=== PATIENT | male | born 2005 | race Two or more races ===

== ENCOUNTER 2023-09-20 08:56 | Outpatient (CLI) | payer SELFPAY ==
--- NOTE | 2023-09-20 09:08 | US_ITS ---
FINAL REPORT CLINICAL HISTORY: INGUINAL PAIN X COUPLE MONTHS COMPARISON: None FINDINGS: Limited sonographic images were obtained of the left inguinal region at the area of interest. There is a questionable small medial left inguinal hernia. IMPRESSION: Questionable small medial left inguinal hernia. Correlate clinically. CT could better evaluate for a small hernia. Reviewed, Interpreted and Dictated by Ronnie Monaco MD Transcribed by Merlene Randhawa Authenticated and [facility]
== END 2023-09-20 23:59 | disposition home or self-care (01) ==
LOC: RAD 09:03
PROVIDERS: PCP Nurse Practitioner Family; Visit Provider Nurse Practitioner Family
DX: K40.40 Unilateral inguinal hernia, with gangrene, not specified as recurrent (principal)
CPT/HCPCS: 76882

== ENCOUNTER 2023-12-23 07:55 | Outpatient (CLI) | payer SELFPAY ==
--- NOTE | 2023-12-23 07:56 | CT_ITS ---
FINAL REPORT TECHNIQUE: After the administration of oral and intravenous contrast, axial images were obtained through the abdomen and pelvis by computed tomography. The study was performed with techniques to keep radiation dose as low as reasonably achievable, (ALARA). Individual dose reduction techniques using automated exposure control or adjustment of mA and/or kV according to the patient's size were employed. CLINICAL HISTORY: LLQ Pain COMPARISON: None FINDINGS: Abdomen: The lung bases are clear. The liver parenchyma is homogeneous. The gallbladder is present. The spleen, pancreas, adrenals and kidneys appear unremarkable. The aorta is normal in caliber. There is no free fluid or adenopathy. Pelvis: The appendix is not identified. There is a moderate amount of stool throughout the colon. The urinary bladder is incompletely distended. There is no free fluid or adenopathy. IMPRESSION: No localized inflammatory reaction or fluid collection identified. Reviewed, Interpreted and Dictated by Ronnie Monaco MD Transcribed by Merlene Randhawa Authenticated and [facility]
[2023-12-23] MEDS: BARIUM SULFATE(READI-CAT2);450ML BOTTLE 450 ML PO (08:21)
[2023-12-23] MEDS: SODIUM CHLORIDE 0.9% 10ML SYR (RAD ONLY) 10 ML IV (08:21)
[2023-12-23] MEDS: IOPAMIDOL-370 (76%);100ML BOTTLE 75 ML IV (08:21)
== END 2023-12-23 23:59 | disposition home or self-care (01) ==
LOC: RAD 07:56
PROVIDERS: PCP Nurse Practitioner Family; Visit Provider Surgery
DX: R10.32 Left lower quadrant pain (principal)
CPT/HCPCS: 74177; Q9967

== ENCOUNTER 2025-02-05 13:03 | Outpatient (CLI) | payer SELFPAY ==
--- OUTSIDE RECORDS SUMMARY | 2025-01-31 10:00 | XMS_ITS | Continuity of Care Document ---
Author Organization [facility] Address [address] [place] [address] Phone Care Team Providers Care Scrubber Operator Name Role Phone Nile MSN, WHEEL AND CASTER REPAIRER, Tayla Unavailable Unavai lable Allergies, Adverse Reactions, Alerts Substance Reaction Status Criticality No Known Allergies Active No Inform ation Medications Medication Instructions Dosage Effective Dates (start - stop) Status Comments triamcinolone acetonide 0.1 % topical cream apply by topical route 2 times every day a thin layer to the affected area(s) 0.00 - Active clobetasol 0.05 % topical ointment apply by topical route 2 times every day a thin layer to the affected area(s) 0.00 - Active fluconazole 200 mg tablet take 1 tablet by oral route every day 200 MG - Active Kusum Allergy 180 mg tablet take 1 tablet by oral route every day 180 MG - Active fluticasone propionate 50 mcg/actuation nasal spray,suspension spray 1 - 2 spray by intranasal route every day in each nostril as needed 50-100 MCG - Active Procedures Procedure Date TELEHEALTH OFFICE/OUTPATIENT VISIT EST O ct Advance Directives Directive Yes / No Effective Date File Name No Information Encounters Encounter Description Practice Location Reason(s) For Visit Diagnoses Date Provider [facility], [address] [place], [address], tel:[phone] [facility] follow up labs (chief complaint)P ain in Testicles (chief complaint)t elehealth (chief complaint) Body mass index [BMI] 30.0-30.9, adultLeft testicular painVaricoceleNicotine dependence, unspecified, uncomplicatedTinea manuumAcute renal injury Jan-0 2 5 Dowd Tayla. [address], [place], [id number] , [place]. tel: [phone] [facility], [address] [place] [address], [facility], tel:[phone] [facility] [place] testicular pain (chief complaint)d ermatitis (chief complaint)s inus congestion (chief complaint) Contact dermatitisNicotine dependence, unspecified, uncomplicatedLeft testicular painObesity, unspecifiedBody mass index [BMI] 30.0-30.9, adult Sep-1 5 Dowd Tayla. [address], [place], [id number] , [place]. tel: [phone] [facility], [address] [place] [address], [facility], tel:[phone] [facility] [place] knee pain (chief complaint)D epression screening (chief complaint) Pain in right kneeEncounter for screening for depressionBody mass index [BMI] 28.0-28.9, adult Mar-0 3- 5 Dowd Tayla. [address], [place], [id number] , [place]. tel: [phone] [facility], [address] [place] [address], [facility], [place] tel:[phone] [facility] [place] Inguinal hernia 4 Dowd Tayla. [address], [place], [id number] , [place]. tel: [phone] [facility], [address] [place] [address], [facility], [place] tel:[phone] [facility] [place] labs (chief complaint) Abnormal results of thyroid function studiesNicotine dependence, unspecified, uncomplicatedUnilateral inguinal hernia, with gangrene, not specified as recurrentLow incomeInsufficient social insurance and welfare support 4 Nile Bourne. [address], [place], [id number] , . tel: [phone] [address], [facility], tel:[phone] [facility] [place] lab collection (chief complaint) Abnormal results of thyroid function studies 4 Nile Bourne. [address], [place], [id number] , [place]. tel: [phone] [address], [facility], tel:[phone] [facility] [place] f/u on labs (chief complaint) Body mass index [BMI] 26.0-26.9, adultAbnormal results of thyroid function studiesPain in right kneePain in left kneeTinea manuum 4 Nile Bourne. [address], [place], [id number] , [place]. tel: [phone] [address], [facility], tel:[phone] [facility] [place] new to establish (chief complaint) Encounter for screening for depressionEncounter for screening examination for other mental health and behavioral disordersSinusitisNicoti ne dependence, unspecified, uncomplicatedEncounter for immunizationEncntr screen for dis of the bld/bld-form org/immun mechnsmBody mass index [BMI] 27.0-27.9, adult 4 Nile Bourne. [address], [place], [id number] , [place]. tel:[phone] Family History Family Member Type Diagnosis Age At Onset Maternal grandmother Problem Asthma Maternal grandmother Problem Cancer, uterine Father Problem liver failure Sister Problem Alive and well Mother Problem Anxiety, Vitamin B and D Deficiency Sister Problem Alive and well Maternal grandfather Problem Hypercholesterolemia Half brother (P) Problem Alive and well Half sister (P) Problem Alive and well Paternal grandfather Problem Alive and well Maternal grandmother Problem Alive and well Maternal grandfather Problem Alive and well Maternal grandmother Problem Hypertension Mother Problem Alive and well Maternal grandmother Problem FIBROMYALGI A, HX OF UTERINE CANCER, DEGENERATIVE DISC DISEASE, ANXIETY Half sister (P) Problem Alive and well Paternal grandmother Problem (finding) Half sister (P) Problem Alive and well Half sister (P) Problem Alive and well Half sister (P) Problem Alive and well Maternal grandmother Problem Depression Mother Problem Hypercholesterolemia Maternal grandmother Problem Hypercholesterolemia Maternal grandfather Problem Hypertension Half sister (P) Problem Alive and well Paternal grandmother Problem Cancer, breast (Caus e Of ) Immunizations Vaccine Date Status Comments Influenza Flulaval administered Source: N ew Immunization Record COVID-19 mRNA (PFR) administered Source: Other Registry COVID-19 mRNA (PFR) administered Source: Other Registry Payers Payer name Insurance type Covered green party ID Authordariaa tilloyd(s) Hc- Covered Under Arpan CI [id number] Hc- Covered Under [employer] CI [id number] Social History Type Description Quantity Date Captured Comments Alcohol Use Details No Caffeine Use Details coffee and prework out caffeine 400 mg daily 2 cups per day Tobacco Use Status Current non-smoker Smoking Status Never smoker Sex Male Sexual Orientation Straight or heterosexual May Gender Identity Male Vital Signs Date / Time: Height Weight BMI Pulse Rate Blood Pressure Temperature Respiratory Rate Body Surface Area Head Circumference Head Circ. Percentile Wt./Milo. Percentile BMI percentile Pulse Ox Inhaled Ox 2:14 PM 73.00 in 106.413 kg (234.60 lbs) 30.9 5 kg/m eter (2) 68 /min 129/70 mm[Hg] 98.20 F 18 /min 98 % Chief Complaint And Reason For Visit From encounter dated '01/31/2025 14:00'. follow up labs (chief complaint). Description: Mega is here today for f/u on recent labs.Overalllabs ok1.34 creatinine- encouraged to drink more water and to stop any energy drinks or supplementsprior to work-outs. He voiced understanding.I will follow along with the US of the Kidney to r/o any further renal abnormalities, ordered by urology.LDL 120, Trigs 47He did go back to general surgeryfor re-evaluation of his left testicular pain. From there, surgeon was still not impressed with imaging of hernia, so he was referred to Urology. They are working up the possibility of a variocele.Hewill need further US of kidney, left testicle and left inguinal area. He is to f/u with them after testing complete.He states rash on hands is getting better with ointmentsAllergies are better with Kusum Pain in Testicles (chief complaint). Description: Dr. Paul on the , has ultrasound next Tuesday at [facility], vericose veins running down left testicle per Dr. Paul. He has a follow up appointment with Dr. Paul on February 18, 2025. telehealth (chief complaint). Description: Patient and/or Guardian has verified being in the [facility] and has given verbal consent to be treated via telehealth/telephone consultation. Today's visit is being completed via; Transmension videoPatient and/or Guardian provided full consent to use this technology. Patient and/or guardian was advised of the limitations of a video/phone visit via telehealth. Pt was seen in office, provider was remotely located: home. Plan Of Treatment Date Type Action Status Goal Lipid panel. Due on 026 due Goal CMP. Due on due Goal Diabetes screening. Due on due Goal Hepatitis C Screening due Goal CBC. Due on due Goal Depression screening. Due on due Goal Tobacco Use Screening. Due o n due Goal Generalized Anxi ety Disorder - 7 (BARRY-7). Due on due Goal Unhealthy drug use screening due Goal Influenza vaccine. Due on due Goal Drug Abuse Scree brown Test (DAST-10). Due on due Goal Vitamin D. Due on due Goal Follow up Plan f or abnormal BMI (Less than 18.5, greater than 25). Due on due Goal HIV screen due Goal Obtain Height, Weight, and B UT. Due on due Goal Vitamin B12. Due on due Goal Tobacco screening. Due on due Goal Hemoglobin (Pree yang/HR 9 months). Due on due Goal Hematocrit/Hemoglobin. Due o n due Goal Lifestyle education regardin g diet completed Goal Lipid panel. Due on due Goal Generalized Anxi ety Disorder - 7 (BARRY-7). Due on due Goal Obtain Height, Weight, and B UT. Due on due Goal CBC. Due on due Goal Tobacco screening. Due on due Goal CMP. Due on due Goal Unhealthy drug use screening due Goal Tobacco Use Screening. Due o n due Goal HIV screen due Goal Influenza vaccine. Due on due Goal Hepatitis C Screening due Goal Follow up Plan f or abnormal BMI (Less than 18.5, greater than 25). Due on due Goal Vitamin D. Due on due Goal Diabetes screening. Due on due Goal Depression screening. Due on due Goal Vitamin B12. Due on due Goal Drug Abuse Scree brown Test (DAST-10). Due on due Goal Hematocrit/Hemoglobin. Due o n due Goal Hemoglobin (Pree yang/HR 9 months). Due on due Goal Lifestyle education regardin g diet completed Goal Hepatitis C Screening due Goal Obtain Height, Weight, and B UT. Due on due Goal HIV screen due Goal Vitamin D. Due on due Goal Follow up Plan f or abnormal BMI (Less than 18.5, greater than 25). Due on due Goal Diabetes screening. Due on due Goal Influenza vaccine. Due on due Goal Depression screening. Due on due Goal Drug Abuse Scree brown Test (DAST-10). Due on due Goal Vitamin B12. Due on due Goal Generalized Anxi ety Disorder - 7 (BARRY-7). Due on due Goal Lipid panel. Due on 044 due Goal CBC. Due on due Goal CMP. Due on due Goal Unhealthy drug use screening due Goal Tobacco Use Screening. Due o n due Goal Lifestyle education regardin g diet completed Goal Unhealthy drug use screening due Goal HIV screen due Goal CBC. Due on due Goal Drug Abuse Scree brown Test (DAST-10). Due on due Goal Influenza vaccine. Due on due Goal Follow up Plan f or abnormal BMI (Less than 18.5, greater than 25). Due on due Goal Tobacco Use Screening. Due o n due Goal Lipid panel. Due on 044 due Goal Depression screening. Due on due Goal Tobacco Use Cess ation Counseling. Due on due Goal Hepatitis C Screening due Goal Vitamin B12. Due on due Goal Obtain Height, Weight, and B UT. Due on due Goal Generalized Anxi ety Disorder - 7 (BARRY-7). Due on due Goal CMP. Due on due Goal Vitamin D. Due on due Goal Diabetes screening. Due on due Goal Follow up Plan f or abnormal BMI (Less than 18.5, greater than 25). Due on due Goal Unhealthy drug use screening due Goal Hepatitis C Screening due Goal CBC. Due on due Goal Vitamin B12. Due on due Goal Drug Abuse Scree brown Test (DAST-10). Due on due Goal HIV screen due Goal Depression screening. Due on due Goal Vitamin D. Due on due Goal Generalized Anxi ety Disorder - 7 (BARRY-7). Due on due Goal CMP. Due on due Goal Influenza vaccine. Due on due Goal Obtain Height, Weight, and B UT. Due on due Goal Tobacco Use Screening. Due o n due Goal Diabetes screening. Due on due Goal Lipid panel. Due on due Goal Vitamin D. Due on due Goal Diabetes screening. Due on due Goal CBC. Due on due Goal Obtain Height, Weight, and B UT. Due on due Goal CMP. Due on due Goal Hepatitis C Screening due Goal Depression screening. Due on due Goal Influenza vaccine. Due on due Goal Vitamin B12. Due on due Goal Tobacco Use Cess ation Counseling. Due on due Goal Generalized Anxi ety Disorder - 7 (BARRY-7). Due on due Goal Lipid panel. Due on due Goal Follow up Plan f or abnormal BMI (Less than 18.5, greater than 25). Due on due Goal Drug Abuse Scree brown Test (DAST-10). Due on due Goal HIV screen due Goal Tobacco Use Screening. Due o n due Goal Unhealthy drug use screening due Goal Obtain Height, Weight, and B UT. Due on due Goal Vitamin B12. Due on due Goal Depression screening. Due on due Goal Generalized Anxi ety Disorder - 7 (BARRY-7). Due on due Goal CBC. Due on due Goal Lipid panel. Due on 044 due Goal Influenza vaccine. Due on due Goal Diabetes screening. Due on due Goal Tobacco Use Cess ation Counseling. Due on due Goal Hepatitis C Screening due Goal Follow up Plan f or abnormal BMI (Less than 18.5, greater than 25). Due on due Goal Unhealthy drug use screening due Goal Vitamin D. Due on due Goal Tobacco Use Screening. Due o n due Goal CMP. Due on due Goal HIV screen due Goal Drug Abuse Scree brown Test (DAST-10). Due on due Goal Lifestyle education regardin g diet completed Goal Obtain Height, Weight, and B UT. Due on due Goal Vitamin B12. Due on due Goal Depression screening. Due on due Goal Generalized Anxi ety Disorder - 7 (BARRY-7). Due on due Goal CBC. Due on due Goal Lipid panel. Due on 044 due Goal Influenza vaccine. Due on due Goal Diabetes screening. Due on due Goal Tobacco Use Cess ation Counseling. Due on due Goal Hepatitis C Screening due Goal Follow up Plan f or abnormal BMI (Less than 18.5, greater than 25). Due on due Goal Unhealthy drug use screening due Goal Vitamin D. Due on due Goal Tobacco Use Screening. Due o n due Goal CMP. Due on due Goal HIV screen due Goal Drug Abuse Scree brown Test (DAST-10). Due on due Goal Lifestyle education regardin g diet completed Goal Tobacco cessation counseling completed Referral Referred To: [facility] Ordered: Referrals: Surgery. [facility]. Location: [place]. Evaluate and treat Appointment date/timeframe: 10/19/2023 ordered Referral Referred To: [facility] Ordered: Referrals: Surgery. [facility]. Location: [place]. Evaluate and treat Appointment date/timeframe: 3 Weeks ordered Referral Ordered: US XTR NON-VASC LMTD Left groin/abdomen Appointment date/timeframe: 09/20/2023 ordered Appointment Mega Gonzales F/U BOOKED History Of Present Illness Encounter Date Complaint History Of Prese nt Illness follow up labs Mega is here today for f/u on recent labs.Overall labs ok1.34 creatinine- encouraged to drink more water and to stop any energy drinks or supplements prior to work-outs. He voiced understanding.I will follow along with the US of the Kidney to r/o any further renal abnormalities, ordered by urology.LDL 120, Trigs 47He did go back to general surgery for re-evaluation of his left testicular pain. From there, surgeon was still not impressed with imaging of hernia, so he was referred to Urology. They are working up the possibility of a variocele.He will need further US of kidney, left testicle and left inguinal area. He is to f/u with them after testing complete.He states rash on hands is getting better with ointmentsAllergies are better with Kusum telehealth Patient and/or G jagdish has verified being in the [facility] and has given verbal consent to be treated via telehealth/telephone consultation. Today's visit is being completed via; Transmension videoPatient and/or Guardian provided full consent to use this technology. Patient and/or guardian was advised of the limitations of a video/phone visit via telehealth. Pt was seen in office, provider was remotely located: home. Pain in Testicles Dr. Paul on the , has ultrasound next Tuesday at [facility], vericose veins running down left testicle per Dr. Paul. He has a follow up appointment with Dr. Paul on February 18, 2025. dermatitis Pt still reports having peeling skin on jez hands that does not go away.He wears gloves a lot, works in construction, sweats, and handles dry wall/chemicals.worse in the winter sinus congestion Mega reports having sinus congestion over the past few years. He is not taking allergy medication.He does not feel sick, and he does not have c/o sore throat, fever.Phlegm in throat.Ear fullness.Starting him on kusum and flonaseRTC if not improved- 2 weeks testicular pain Onset: 1 year ag o. It occurs Intermittently. Location is left scrotum and left testicle. There is radiation to groin to testis. The problem is worse. Context: lifting. Symptom is aggravated by activity. Denies relieving factors. Associated symptoms include swelling. Pertinent negatives include headache. Additional information: 09/20/23 had US of left testicle and was noted to have small inguinal hernia. A CT was recommended for further evaluation.. Depression screening Depression screening completed 07/02/24. Pt scored 0, provider aware. -AW,CM knee pain Onset: 2 weeks a go. Severity level is 6. It occurs constantly and is worsening. Location: right knee. There is no radiation. The pain is aching. Context: there is an injury. Trauma occurred [facility] on 06/23/2024. The pain is aggravated by bending and movement. There are no relieving factors. Associated symptoms include decreased mobility, joint tenderness, limping and swelling. Pertinent negatives include bruising and crepitus. labs Mega is here today to have labs collected, repeat TSH and possible referral to urology.He is a 17 yo male.In May he had labs completed- and his TSH was slightly low. This was repeated July 06 and was back to normal.His mother, grandmother, and aunts have thyroid problems. Today he reports he is feeling states that he feels like there is pain in the left testicle. Sometimes hurts and some does not. Lifting heavy stuff- is prasad. States that when he has an erection it feel like it is pulling on the left side of the shaft of the penis.Denies difficulty w/ urination, no discharge noted. possible inguinal hernia w/ scrotal involvement. US ordered for confirmation.Referral made to general sx. lab collection Mega is here today for repeat TSH collection f/u on labs Mega is a 17 yo male here today to f/u on recent labs:CBC, CMP, wnlBUN slight elevation at 21A1c 5.0Neg Hep/HIVTotal Cholesterol 163, HDL 64, LDL 86, and trigs 52TSH slightly low 0.47, and T4 wnl will repeat TSH in 6 weeks to re-evaluateTestosterone wnlB12 593 and vit D 29Overall labs are goodFlu vaccine currentrash on left hand and thumb x 6 yearslifts weights, carpenterdry and scaleyitches at timesReports jez knee pain that comes and goespops and cracks at times- sometimes a sharp pain in rt lateral kneelifts weights and goes to the gym frequentlyalso up and down w/ his workNo insurance- declines xrays or MRI at this timeRT hurts more than left at timesPain is tollerable and not present todayadvised to use ice/heat therapy, avoid over use and could use otc nsaid for pain releif or topical rub (voltaren/blue emu)He voiced understanding. new to establish Mega is a 17 yo [place] -[place] male here today to establish care.I care for his mother, aunt, and maternal grandparents as well. (elzbieta hx of htn, hld, pre-DM, anxiety)Mega states he has had cough/congestion and some vomiting for the past week. He has not taken anything for this, however reports he was sick just 1 month ago and was given amoxicillin- got better. Aside from this he still would like to have his flu vaccine today.He denies other problems, but request to have his insulin and testosterone checked in addition to routine labs.He is fasting today.He vapes 1 gram daily- cessation was discussed and he feels he can stop at anytime- and I encouraged him to stop today. Instructions Date Instruction Additional Infor mirela Continue w/ planned US on the 7thF/u with urologyIf you do not have surgery, and do not have labs completed elsewhere, RTC here in 1 month.RTC sooner for new problems or concerns. Related to Varicocele Continue to keep can ds drycontinue use of ointments Related to Tinea manuum It is recommended to stop smoking/vaping to increase overall health and decrease risk of cardiovascular disease. If you wish to stop smoking/vaping, there is a free online [place] from smoking course offered through our local health department. You may call [phone] for more information. Related to Nicotine dependence, unspecified, uncomplicated Stop using creatine after work-outs, stop using Monster drinks.Increase water consumption.May continue multivitamin.RTC 1 month for repeat labs- if not performed for your upcoming possible surgery. Related to Acute renal injury Giving encouragement to exercise Related to Body mass index [BMI] 30.0-30.9, adult Lifestyle education regarding di et Related to Body mass index [BMI] 30.0-30.9, adult Please follow up esther Drake. for further evaluation of inguinal hernia. If you have increased pain go to the ER. Related to Left testicular pain Apply Triamsinolone to affected r ea two times daily, to affected area. Do not use on your face. Use cool compresses to area, wear loose fitting cotton clothing. My take aveeno bath. Do not use any soap with dyes or perfumes in it. It may be beneficial to use a moisturizing ointment such as cerevae or jones two times daily to aid w/ inflammation. Change gloves frequently Related to Contact dermatitis It is recommended to stop smoking/vaping to increase overall health and decrease risk of cardiovascular disease. If you wish to stop smoking/vaping, there is a free online [place] from smoking course offered through our local health department. You may call [phone] for more information. Related to Nicotine dependence, unspecified, uncomplicated Giving encouragement to exercise Related to Obesity, unspecified Lifestyle education regarding di et Related to Obesity, unspecified rest, ice, compressi on as instructed to reduce post joint injection(s) pain and swellingMay use voltaren gel or icy hot to affected areaTake Prednisone as instructed. RTC 1 week if not improving. Related to Pain in right knee Giving encouragement to exercise Related to Body mass index [BMI] 28.0-28.9, adult Lifestyle education regarding di et Related to Body mass index [BMI] 28.0-28.9, adult It is recommended to stop vaping to increase overall health and decrease risk of cardiovascular disease. If you wish to stop vaping, there is a free online [place] from smoking course offered through our local health department. You may call [phone] for more information. Related to Nicotine dependence, unspecified, uncomplicated Physical activity as tolerated. Try to engage in some form of moderate physical activity for 30 minutes most days of the week. May modify activity as needed to reduce discomfort. Try to achieve/maintain a healthy body weight to reduce strain on musculoskeletal system. Verbalizes an understanding. Related to Body mass index [BMI] 26.0-26.9, adult Giving encouragement to exercise Related to Body mass index [BMI] 26.0-26.9, adult Lifestyle education regarding di et Related to Body mass index [BMI] 26.0-26.9, adult Fasting labs today - routine + testosterone and insulin levels Related to Encntr screen for dis of the bld/bld-form org/immun mechnsm It is recommended to stop smoking/vaping to increase overall health and decrease risk of cardiovascular disease. If you wish to stop smoking/vaping, there is a free online [place] from smoking course offered through our local health department. You may call [phone] for more information. Related to Nicotine dependence, unspecified, uncomplicated Flu vaccine given to day You may have some mild discomfort, chills, or a sore arm in the next 24 hrs. If needed you may take tylenol per packing instructions Related to Encounter for immunization Take all antibiotics until complete. May take with food to ease stomach irritation. If you experience frequent yeast infections, you may consider taking an OTC probiotic like culturell or align while taking antibiotics, or eating yogurt (daily) with active cultures. Related to Sinusitis Giving encouragement to exercise Related to Body mass index [BMI] 27.0-27.9, adult Lifestyle education regarding di et Related to Body mass index [BMI] 27.0-27.9, adult Assessments Type Assessment Date assessment Body mass index [BMI] 30.0-30.9, adult assessment Left testicular pain assessment Varicocele assessment Nicotine dependence, unspecified , uncomplicated assessment Tinea manuum assessment Acute renal injury Mental Status Date Cognitive Assessment Orientation - [place] ed to time, place, person, situation.
--- NOTE | 2025-02-05 13:00 | US_ITS ---
FINAL REPORT TECHNIQUE: Sonographic images of the testicles and scrotum were obtained in the longitudinal and transverse planes. CLINICAL HISTORY: lt testicular pain and groin pain FINDINGS: The right testicle measures 3.9 x 4.7 x 2.3 centimeters. There is no intratesticular mass. The epididymis is within normal limits. No extratesticular mass is identified. There is a right varicocele. The left testicle measures 3.3 x 3.7 x 2.4 centimeters. There is no intratesticular mass. The epididymis is within normal limits. No extratesticular mass is identified. There is a left varicocele. Small left hydrocele is also identified. Color imaging reveals no evidence of testicular torsion. IMPRESSION: No evidence of intratesticular mass or testicular torsion. Bilateral varicoceles. Reviewed, Interpreted and Dictated by Christie Grey MD Transcribed by Luz Ramírez Authenticated and [facility]
--- OUTSIDE RECORDS SUMMARY | 2025-02-05 13:09 | XMS_ITS | Clinical Summary ---
Author Organization [facility] Address [address] [place] [address] Care Team Providers Care Pesticide Chemist Name Role Phone Marciano Beaver MD Primary Care Provider [phone] Allergies No known active allergies Medications cetirizine (zyrTEC) 10 MG tabletIndication s:Seasonal allergic rhinitis due to pollen Take 1 tablet by mouth Daily. 30 tablet 3 3 Active fluticasone (FLONASE) 50 MCG/ACT nasal sprayIndications :Seasonal allergic rhinitis due to pollen 2 sprays into the nostril(s) as directed by provider Daily. 15.8 mL 3 3 Active albuterol sulfate HFA 108 (90 Base) MCG/ACT inhalerIndicatio ns:Mild intermittent intrinsic asthma without status asthmaticus without complication Inhale 2 puffs Every 4 (Four) Hours As Needed for Wheezing or Shortness of Air. 18 g 2 3 Active triamcinolone (KENALOG) 0.1 % ointmentIndicati ons:Other atopic dermatitis Apply 1 application topically to the appropriate area as directed 2 (Two) Times a Day. 30 g 3 Active Active Problems Problem Noted Date Diagnosed Date Seasonal allergic rhinitis due to pollen 023 Assessment & Plan (09/03/2022 2:55 PM EDT): Seasonal pattern more spring and fall, generally does quite well but responds to as needed medications. Prescription for Zyrtec and Flonase to use for the next couple weeks, then as needed. Additional benefit of saline spray, nasal flushing. 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 Overall doing well but he is out of his rescue inhaler and we will refill today. Cautioned signs and symptoms of worsening which be signs of shortness of breath, chest tightness or exertional cough. Advise any worsening. Routine general medical exam ination at a health care facility 09/03/2022 Assessment & Plan (09/03/2022 2:53 PM EDT): no cardiac problems historically known. history of mild intermittent asthma, no flare since about 2014. seasonal allergic rhinitis, atopic dermatitis. Previous vaccinations up-to-date including 9-year-old vaccinations and 14-year-old meningitis booster through combined locations of [place] and critical access hospital in [place]. Non-bullous impetigo 04/27/2022 Assessment & Plan (04/27/2022 2:30 PM EST): Pattern of the blotchy yellow crusty rash on the left neck, the left lateral chin and underneath the anterior chin, likely pattern secondary to spread of infection from impetigo about 4 to 5 days ago. It is doing a little bit better but persist to the lesser degree. Initiate mupirocin ointment and Keflex as per prescription. Otherwise keep the area clean and dry. Advise if not improving. Other atopic dermatitis 04/27/2022 Assessment & Plan (09/03/2022 2:54 PM EDT): Intermittent pattern more winter months, involving the hands, for which she is doing better now that the weather is warmer. Use of unscented lotion such as Eucerin, Aveeno or Aquaphor. Also triamcinolone 0.1% cream 2-3 times daily as needed for periodic flares, avoid use in the face. Advise any worsening. Assessment & Plan (04/27/2022 2:31 PM EST): Modest intermittent pattern on the left thumb, with possibly some secondary pattern of fungal etiology as per tinea corporis discussion. From an eczematous perspective, keep the area clean and dry, use frequent unscented lotion such as Eucerin, Aveeno and Aquaphor. Have also prescribed triamcinolone 0.1% cream to be used 2-3 times daily as needed for periodic flares. Advise any worsening. Tinea corporis 04/27/2022 Assessment & Plan (04/27/2022 2:31 PM EST): Left thumb region with dry scaly rash intermittently flaring over the last couple years. I do feel that there is definitely a component of eczema but there may be a secondary milder fungal etiology. Initiate terbinafine as per prescription for 2 weeks. Keep the area clean and dry. Advise if not improving. Childhood overweight, BMI 85-94.9 percentile Assessment & Plan (09/03/2022 2:56 PM EDT): Patient is not truly overweight, he is appropriate body fat percentage by visualization and has a muscular build. Nonetheless I have reinforced healthy diet, exercise, as he would be at high risk with his muscular build of transitioning to obesity pattern in the future. Assessment & Plan (04/27/2022 2:34 PM EST): Not truly overweight, he has a good body fat for his weight frame, he has muscular and that is the reason for his slightly elevated BMI. Continue healthy diet, continue regular exercise with combination of aerobic and anaerobic exercise, no specific need for weight loss. Immunizations Immunization Administration Dates Next Due COVID-19 ([employer]) Purple Cap Monovalent 09/19/19 21,08/28/2020 Family History Medical History Relation Name Comments Thyroid disease Mother Relation Name Status Comments Father Alive Mother Alive Social History Tobacco Use Types Packs/Day Years Used Date Smoking Tobacco: Never Smokeless Tobacco: Never Alcohol Use Standard Drinks/Week Comments Never 0 (1 standard drink = 0.6 oz pur e alcohol) PHQ-2 Answer Date Recorded Retired PHQ-9: Brief Depression Severity Measure Score 0 09/03/2022 Abuse Screen Answer Date Recorded Unsafe at Home or Work/School Not on file Feels Threatened by Someone? Not on file Does Anyone Keep You from Co ntacting Others or Doint Things Outside the Home? Not on file 02/11/2023 Physical Sign of Abuse Present Not on file 1 Housing Stability Answer Date Recorded Current Living Arrangements Not on file 01/30 Potentially Unsafe Housing Conditions Not on kendra e 02/11/2023 Family and Community Support Answer Alphonso e Recorded Help with Day-to-Day Activities Not on file 02/11/2023 Lonely or Isolated Not on file 02/11/2023 Employment Answer Date Recorded Do you want help finding or keeping work or a cristina b? Not on file 02/11/2023 Disabilities Answer Date Recorded Concentrating, Remembering, or Making Decisions Difficulty Not on file 02/11/2023 Doing Errands Independently Difficulty Not on fi le 02/11/2023 Education Answer Date Recorded Help with school or training? Not on file Preferred Language Not on file 02/11/2023 PHQ-2 Answer Date Recorded Retired PHQ-9: Brief Depression Severity Measure Score 0 09/03/2022 Sex and Gender Information Value Date Recorded Sex Assigned at Not on file Legal Sex Male 5:27 PM EDT Gender Identity Not on file Sexual Orientation Not on file Last Filed Vital Signs Vital Sign Reading Time Taken Comments Blood Pressure 122/82 09/03/2022 1:55 PM EDT Pulse 63 09/03/2022 1:55 PM EDT Temperature 36.8 C (98.2 F) 09/03/2022 1:55 PM EDT Respiratory Rate 16 09/03/2022 1:55 PM EDT Oxygen Saturation 98% 09/03/2022 1:55 PM EDT Inhaled Oxygen Concentration - - Weight 92.6 kg (204 lb 3.2 oz) 09/03/2022 1:55 P M EDT Height 182.9 cm (6') 09/03/2022 1:55 PM EDT Body Mass Index 27.69 09/03/2022 1:55 PM EDT Plan of Treatment Health Maintenance Due Date Last Done Comments HPV VACCINES (1 - Male 3-dos e series) 11/04/2018 MENINGOCOCCAL B VACCINE (1 o f 2 - Standard) 2019 Pneumococcal Vaccine 0-49 (1 of 2 - PCV) 11/04/2022 TDAP/TD VACCINES (1 - Tdap) 11/04/2022 ANNUAL PHYSICAL 09/04/2023 09/03/2022 INFLUENZA VACCINE 11/30/2024 HEPATITIS C SCREENING Completed 09/03/2022 MENINGOCOCCAL VACCINE Aged Out No alexsander nury eligible based on patient's age to complete this topic Procedures Procedure Name Priority Date/Time Associated Diagnosis Comments HEPATITIS C ANTIBODY Routine 09/03/2022 2:23 PM EDT Routine general medical examination at a health care facility from Last 3 Months or Most Recently Relevant to Health Maintenance Results * Hepatitis C Antibody (09/03/2022 2:23 PM EDT) Hep C Virus Ab Non Reactive Non Reactive [facility] Comment: HCV antibody alone does not differentiate between previously resolved infection and active infection. Equivocal and Reactive HCV antibody results should be followed up with an HCV RNA test to support the diagnosis of active HCV infection. Blood Structure of right upper limb / Unknown 09/03/2022 2:23 PM EDT 09/03/2022 Comment:Blood Release to [facility] kristyn Winn [facility] (AMBULATORY) - 09/04/2022 9:06 AM EDT Performed at: - [facility] [address] [place] [address] [id number] Fur Stretcher: Dino Chambers PhD, Phone: [phone] Marciano Beaver MD LAB BLOOD ORDERABLES Final Resul t [facility] ([facility] [address] [place] [address], [facility] [address] [place] [address], [place] [phone] from Last 3 Months or Most Recently Relevant to Health Maintenance Insurance Care Teams Pesticide Chemist Relationship Specialty Start Date End Date Marciano Beaver MD [address] [place] [address] [place] [id number] PCP - General Internal Medicine 03/31/22
--- NOTE | 2025-02-05 13:45 | US_ITS ---
FINAL REPORT TECHNIQUE: Sonographic images of the kidneys and retroperitoneum were obtained in the longitudinal and transverse planes. CLINICAL HISTORY: lt testicular pain and inguinal pain FINDINGS: The right kidney measures 11.1 cm in [id number] length. No hydronephrosis, mass, or stone. Cortical echogenicity and thickness are normal. The left kidney measures 9.5 cm in [id number] length. No hydronephrosis, mass, or stone. Cortical echogenicity and thickness are normal. IMPRESSION: Morphologically normal kidneys bilaterally. Reviewed, Interpreted and Dictated by Christie Grey MD Transcribed by Luz Ramírez Authenticated and [facility]
--- NOTE | 2025-02-05 14:15 | US_ITS ---
FINAL REPORT CLINICAL HISTORY: Inguinal pain FINDINGS: Limited sonographic images of the left inguinal region was obtained. There is no evidence of mass or fluid collection. There are mildly enlarged but benign appearing lymph nodes, largest measures 4.4 cm. IMPRESSION: Left inguinal no adenopathy, favor reactive. Consider CT. Reviewed, Interpreted and Dictated by Christie Grey MD Transcribed by Luz Ramírez Authenticated and . [facility]
== END 2025-02-05 23:59 | disposition home or self-care (01) ==
LOC: RAD 13:04
PROVIDERS: PCP Nurse Practitioner Family; Visit Provider Urology
DX: I86.1 Scrotal varices (principal); N50.812 Left testicular pain; R10.32 Left lower quadrant pain
CPT/HCPCS: 76770; 76870; 76882